=== PATIENT | female | born 1930 | race African-American/Black ===

== ENCOUNTER 2016-07-06 17:35 | Inpatient (IN) | payer MEDICARE, BC ==
[~2016-07-06] VITALS: Ht 165.1 cm; Wt 78.0 kg
[2016-07-06 01:00] VITALS: BP 99/62
[~2016-07-06 17:35] MED LIST: BACLOFEN PO; COUMADIN PO; CRESTOR PO; KEPP500 PO; LEVOTHYROXINE PO; LEVPEN SQ; LISINOPRIL PO; NOVOLOG; TRAM50TA3 PO
[2016-07-06] MEDS ORDERED: SODIUM CHLORIDE 0.9% 1,000 ML IV ONE ×2 (19:10→19:15)
[2016-07-06] MEDS ORDERED: PHYTONADIONE 10MG/ML AMP SUBCUT ONE (19:15)
[2016-07-06 19:42] LABS: CHLORIDE 99 mEq/L (98-107); INDEX HEMOLYSI 2 (1-3); INDEX ICTERIC 1 (1-4); INDEX LIPEMIC 1 (1-3)
[2016-07-06 19:45] LABS: INR 2.4; PROTHROMBIN TIME 24.4 sec
[2016-07-06 19:46] LABS: ANION GAP 30; CALCIUM 9.4 mg/dL (8.5-10.1); CARBON DIOXIDE 15 mEq/L (21-32); ETHANOL BLOOD < 10 mg/dL; UREA NITROGEN BLOOD 31 mg/dL (7-21)
[2016-07-06 19:47] LABS: AMMONIA < 10 uMol/L (<32); INDEX HEMOLYSI 1 (1-3)
[2016-07-06 19:51] LABS: ALANINE AMINOTRANSFERASE 24 IU/L (13-61); eGFR 32 mL/min (>60)
[2016-07-06 19:54] LABS: LACTIC ACID 7.9 mmol/L (0.4-2.0)
[2016-07-06] MEDS ORDERED: LEVOFLOXACIN 500MG PREMIX 100 ML IV ONE (20:15)
[2016-07-06] MEDS ORDERED: INSULIN REGULAR (HUMULIN R) 300UNITS/3ML IV ONE (20:15)
[2016-07-06] MEDS ORDERED: GENTAMICIN 120MG PREMIX 100 ML IV SCH (20:15)
[2016-07-06 20:39] LABS: BG BASE EXCESS -8.3 mmol/L (-2.0-2.0); BG CARBOXYHEMOGLOBIN 0.3 % (0.5-1.5); BG DEOXYHEMOGLOBIN 3.7 % (0.0-5.0); BG FRACTION INSPIRED OXYGEN 21; BG HCO3 ACT 14.2 mmol/L (22.0-26.0); BG METHEMOGLOBIN 0.3 % (0.0-1.5); BG OXYGEN SATURATION 96.3 % (92.0-98.5); BG OXYHEMOGLOBIN 95.7 % (94.0-97.0); BG PCO2 22.8 mmHg (35.0-45.0); BG PH 7.412 (7.350-7.450); BG PO2 82.3 mmHg (75.0-100.0); BG SAMPLE SITE RIGHT BRACHIAL; BG TOTAL HEMOGLOBIN 13.9 g/dL (12.0-18.0); BG VENT MODE ROOM AIR
[2016-07-06 21:17] LABS: GLUCOSE URINE NEGATIVE (NEGATIVE); KETONES URINE 1+ (NEGATIVE); LEUKOCYTE ESTERASE URINE 3+ (NEGATIVE); NITRITE URINE NEGATIVE (NEGATIVE); OCCULT BLOOD URINE 3+ (NEGATIVE); PROTEIN URINE 2+ (NEGATIVE); SPECIFIC GRAVITY URINE 1.023 (1.005-1.030)
[2016-07-06 21:25] LABS: CLARITY URINE CLOUDY (CLEAR); COLOR URINE YELLOW (YELLOW)
[2016-07-06 21:30] LABS: BACTERIA URINE 2+; SQUAMOUS EPITHELIAL CELL URINE 1+ /lpf (RARE/1+); WBC URINE 50-100 /hpf (0-2)
[2016-07-06 21:44] LABS: *AMPHETAMINES SCREEN URINE NEGATIVE (NEGATIVE); *BARBITURATES SCREEN URINE NEGATIVE (NEGATIVE); *BENZODIAZEPINES SCREEN URINE NEGATIVE (NEGATIVE); *COCAINE SCREEN URINE NEGATIVE (NEGATIVE); CANNABINOID URINE SCREEN NEGATIVE (NEGATIVE); ECSTASY MDMA SCREEN URINE NEGATIVE (NEGATIVE); METHADONE URINE SCREEN NEGATIVE (NEGATIVE); OPIATES URINE SCREEN PRESUMTIVE POSITIVE (NEGATIVE); PHENCYCLIDINE URINE SCREEN NEGATIVE (NEGATIVE)
[2016-07-06 22:31] LABS: BASOPHILS % 0.3 % (0.0-2.0); HEMATOCRIT. 41.5 % (36.0-48.0); LYMPHOCYTES % 10.3 % (20.0-50.0); MEAN CORPUSCULAR HEMOGLOBIN 28.1 pg (28.0-32.0); MEAN CORPUSCULAR HGB CONC 31.4 g/dL (31.0-37.0); MEAN CORPUSCULAR VOLUME 89.5 fL (81.0-99.0); MEAN PLATELET VOLUME 10.7 fl (7.4-10.4); MONOCYTES % 8.5 % (2.0-8.0); NEUTROPHILS % 80.9 % (40.0-76.0); PLATELET 195 x1000/uL (130-400); RED BLOOD CELL COUNT 4.64 mill/uL (4.2-5.4); RED CELL DISTRIBUTION WIDTH 16.1 % (11.6-14.6); WHITE BLOOD COUNT 15.1 x1000/uL (4.5-11.0)
[2016-07-06] MEDS ORDERED: DEXT 5%/0.45% NACL 1000ML 1,000 ML IV SCH (23:51)
[2016-07-07] VITALS (7 sets, daily range): BP systolic 86–100; BP diastolic 43–69
[2016-07-07] MEDS ORDERED: LEVOFLOXACIN 500MG PREMIX 100 ML IV SCH
[2016-07-07] MEDS ORDERED: ONDANSETRON HCL 4MG/2ML VIAL IV PRN
[2016-07-07] MEDS ORDERED: DIPHENHYDRAMINE 50MG/ML VIAL IV PRN
[2016-07-07] MEDS ORDERED: CLONIDINE 0.1MG TABLET PO PRN
[2016-07-07] MEDS ORDERED: DEXTROSE 50% WATER 50ML SYRINGE IV PRN (01:15)
[2016-07-07] MEDS: INSULIN LISPRO 100 UNITS/ML SUBCUT SCH ×5 (01:58→21:18)
[2016-07-07] MEDS: BLOOD SUGAR DIAGNOSTIC STRIP TEST SCH ×5 (02:00→21:12)
[2016-07-07] MEDS: PANTOPRAZOLE SODIUM 40 MG/VIAL IV SCH ×2 (02:01→12:56)
[2016-07-07] MEDS: SODIUM CHLORIDE 0.9% 1,000 ML IV SCH ×3 (02:01→21:13)
[2016-07-07] MEDS ORDERED: WARF1TAB46 PO (02:38)
[2016-07-07] MEDS ORDERED: ROSU20TA PO (06:21)
[2016-07-07] MEDS ORDERED: LEVO25TA7 PO (06:21)
[2016-07-07] MEDS ORDERED: WARF3TAB28 PO (06:21)
[2016-07-07 08:28] LABS: HEMATOCRIT. 38.1 % (36.0-48.0); HEMOGLOBIN. 12.1 g/dL (12.0-16.0); MEAN CORPUSCULAR HEMOGLOBIN 27.9 pg (28.0-32.0); MEAN CORPUSCULAR HGB CONC 31.7 g/dL (31.0-37.0); MEAN CORPUSCULAR VOLUME 88.1 fL (81.0-99.0); MEAN PLATELET VOLUME 10.6 fl (7.4-10.4); PLATELET 163 x1000/uL (130-400); RED BLOOD CELL COUNT 4.33 mill/uL (4.2-5.4); RED CELL DISTRIBUTION WIDTH 15.9 % (11.6-14.6); WHITE BLOOD COUNT 13.5 x1000/uL (4.5-11.0)
[2016-07-07 08:29] LABS: DIFFERENTIAL COMMENT 1
[2016-07-07 08:33] LABS: INR 2.1; PROTHROMBIN TIME 21.6 sec
[2016-07-07 08:50] LABS: CALCIUM 8.2 mg/dL (8.5-10.1)
[2016-07-07 08:53] LABS: THYROID STIMULATING HORMONE 2.1 uIU/mL (0.36-3.74)
[2016-07-07] MEDS ORDERED: PANTOPRAZOLE SODIUM 40 MG/VIAL IV SCH (09:00)
[2016-07-07 14:48] LABS: ANISOCYTOSIS 1+; PLATELET ESTIMATE NORMAL
[2016-07-07] MEDS ORDERED: LEVAQUIN XX SCH (16:30)
[2016-07-07] MEDS: LEVOFLOXACIN 250MG PREMIX 50 ML IV SCH (18:37)
[2016-07-07] MEDS ORDERED: GENTAMICIN 100MG PREMIX 50 ML IV SCH (21:00)
[2016-07-07] MEDS ORDERED: GENTAMICIN 80MG PREMIX 100 ML IV SCH (23:00)
[2016-07-08] VITALS: BP 98/57
[2016-07-08] MEDS: PANTOPRAZOLE SODIUM 40 MG/VIAL IV SCH ×2 (02:11→12:43)
[2016-07-08 04:00] VITALS: BP 104/73
[2016-07-08] MEDS: ACETAMINOPHEN 325MG TABLET PO PRN (06:06)
[2016-07-08 06:10] LABS: INR 1.2; PROTHROMBIN TIME 12.7 sec
[2016-07-08] MEDS: SODIUM CHLORIDE 0.9% 1,000 ML IV SCH ×2 (06:12→08:24)
[2016-07-08] MEDS: BLOOD SUGAR DIAGNOSTIC STRIP TEST SCH ×4 (06:12→21:00)
[2016-07-08 06:47] LABS: BASOPHILS % 0.1 % (0.0-2.0); HEMATOCRIT. 38.4 % (36.0-48.0); HEMOGLOBIN. 12.4 g/dL (12.0-16.0); LYMPHOCYTES % 8.9 % (20.0-50.0); MEAN CORPUSCULAR HEMOGLOBIN 28.4 pg (28.0-32.0); MEAN CORPUSCULAR HGB CONC 32.2 g/dL (31.0-37.0); MEAN CORPUSCULAR VOLUME 88.1 fL (81.0-99.0); MEAN PLATELET VOLUME 10.6 fl (7.4-10.4); MONOCYTES % 10.4 % (2.0-8.0); NEUTROPHILS % 80.6 % (40.0-76.0); PLATELET 136 x1000/uL (130-400); RED BLOOD CELL COUNT 4.36 mill/uL (4.2-5.4); WHITE BLOOD COUNT 9.9 x1000/uL (4.5-11.0)
[2016-07-08 07:44] LABS: CALCIUM 8.2 mg/dL (8.5-10.1); MAGNESIUM 1.9 mg/dL (1.8-2.4); PHOSPHORUS 1.7 mg/dL (2.5-4.9)
[2016-07-08 08:00] VITALS: BP 92/63
[2016-07-08] MEDS: LEVOTHYROXINE SODIUM 88MCG TABLET PO SCH (08:23)
[2016-07-08] MEDS: INSULIN LISPRO 100 UNITS/ML SUBCUT SCH ×4 (08:29→22:27)
[2016-07-08] MEDS ORDERED: POTASSIUM CHLORIDE 20 MEQ/PACKET PO NR (10:15)
[2016-07-08 12:00] VITALS: BP 95/63
[2016-07-08] MEDS ORDERED: POTASSIUM PHOS,M-BASIC-D-BASIC 20 MMOL in DEXT 5% WATER 243.3333 ML IV NR (12:00)
[2016-07-08] MEDS: LEVOFLOXACIN 250MG PREMIX 50 ML IV SCH (17:08)
[2016-07-08] MEDS ORDERED: WARFARIN SODIUM 5MG TABLET PO NR (18:00)
[2016-07-08] MEDS ORDERED: WARFARIN SODIUM 3MG TABLET PO NR (18:00)
[2016-07-08] MEDS: IPRATROPIUM/ALBUTEROL 0.5-3(2.5)MG/3ML NEB HHN SCH (20:18)
[2016-07-08 22:58] VITALS: BP 88/56
[2016-07-08] MEDS: INSULIN DETEMIR UD 100 UNITS/ML SYR SUBCUT SCH (23:15)
[2016-07-08] MEDS ORDERED: GUAIFENESIN 200MG/10ML SUGAR FREE UDC PO PRN (23:30)
[2016-07-09] VITALS: BP 98/65
[2016-07-09] MEDS: ACETAMINOPHEN 325MG TABLET PO PRN ×2 (00:27→13:26)
[2016-07-09] MEDS: IPRATROPIUM/ALBUTEROL 0.5-3(2.5)MG/3ML NEB HHN SCH ×4 (01:56→20:45)
[2016-07-09] MEDS: PANTOPRAZOLE SODIUM 40 MG/VIAL IV SCH ×2 (03:07→13:04)
[2016-07-09 04:00] VITALS: BP 140/98
[2016-07-09] MEDS: BLOOD SUGAR DIAGNOSTIC STRIP TEST SCH ×4 (06:48→20:53)
[2016-07-09 07:33] LABS: BASOPHILS % 0.1 % (0.0-2.0); HEMATOCRIT. 36.4 % (36.0-48.0); HEMOGLOBIN. 11.8 g/dL (12.0-16.0); LYMPHOCYTES % 9.2 % (20.0-50.0); MEAN CORPUSCULAR HEMOGLOBIN 28.7 pg (28.0-32.0); MEAN CORPUSCULAR HGB CONC 32.5 g/dL (31.0-37.0); MEAN CORPUSCULAR VOLUME 88.4 fL (81.0-99.0); MEAN PLATELET VOLUME 10.4 fl (7.4-10.4); MONOCYTES % 7.8 % (2.0-8.0); NEUTROPHILS % 82.9 % (40.0-76.0); PLATELET 132 x1000/uL (130-400); RED BLOOD CELL COUNT 4.12 mill/uL (4.2-5.4); RED CELL DISTRIBUTION WIDTH 16.3 % (11.6-14.6); WHITE BLOOD COUNT 9.6 x1000/uL (4.5-11.0)
[2016-07-09 07:34] LABS: INR 1.1; PROTHROMBIN TIME 11.5 sec
[2016-07-09 08:00] VITALS: BP 92/57
[2016-07-09 08:13] LABS: CALCIUM 8.4 mg/dL (8.5-10.1); PHOSPHORUS 2.5 mg/dL (2.5-4.9)
[2016-07-09] MEDS: LEVOTHYROXINE SODIUM 88MCG TABLET PO SCH (08:16)
[2016-07-09] MEDS: INSULIN LISPRO 100 UNITS/ML SUBCUT SCH ×4 (08:16→20:54)
[2016-07-09] MEDS ORDERED: POTASSIUM CHLORIDE INJ 40 MEQ in DEXT 5% WATER 250 ML IV SCH (10:00)
[2016-07-09] MEDS: INSULIN DETEMIR UD 100 UNITS/ML SYR SUBCUT SCH ×2 (10:14→21:01)
[2016-07-09 12:00] VITALS: BP 96/65
[2016-07-09 16:00] VITALS: BP 108/69
[2016-07-09] MEDS ORDERED: WARFARIN SODIUM 4MG TABLET PO SCH (18:00)
[2016-07-09] MEDS ORDERED: LEVOFLOXACIN 250MG PREMIX 50 ML IV NR (18:00)
[2016-07-09 20:00] VITALS: BP 95/70
[2016-07-09] MEDS: HYDROCODONE/ACETAMINOPHEN 5/325MG TABLET PO PRN (20:47)
[2016-07-10] VITALS: BP 97/60
[2016-07-10] MEDS: PANTOPRAZOLE SODIUM 40 MG/VIAL IV SCH ×2 (01:15→13:45)
[2016-07-10] MEDS: IPRATROPIUM/ALBUTEROL 0.5-3(2.5)MG/3ML NEB HHN SCH ×3 (02:15→13:28)
[2016-07-10 04:00] VITALS: BP 101/52
[2016-07-10 05:45] LABS: INR 1.1; PROTHROMBIN TIME 11.5 sec
[2016-07-10] MEDS: HYDROCODONE/ACETAMINOPHEN 5/325MG TABLET PO PRN (06:05)
[2016-07-10] MEDS: BLOOD SUGAR DIAGNOSTIC STRIP TEST SCH ×2 (06:20→13:03)
[2016-07-10] MEDS: INSULIN LISPRO 100 UNITS/ML SUBCUT SCH ×2 (08:27→13:04)
[2016-07-10] MEDS: LEVOTHYROXINE SODIUM 88MCG TABLET PO SCH (08:27)
[2016-07-10] MEDS: INSULIN DETEMIR UD 100 UNITS/ML SYR SUBCUT SCH (10:17)
[2016-07-10 12:00] VITALS: BP 112/69
[2016-07-10 15:10] VITALS: BP 112/69
[2016-07-10 16:00] VITALS: BP 98/74
== END 2016-07-10 17:45 | disposition home health service (06) | DRG 871 ==
LOC: ER 17:36 → 7WST 20:46
PROVIDERS: ADMIT Internal Medicine; ATTEND Internal Medicine
DX: A41.9 Sepsis, unspecified organism (principal); G93.41 Metabolic encephalopathy; N39.0 Urinary tract infection, site not specified; E87.2 Acidosis; I69.354 Hemiplegia and hemiparesis following cerebral infarction affecting left non-dominant side; E03.9 Hypothyroidism, unspecified; E11.9 Type 2 diabetes mellitus without complications; E78.00 Pure hypercholesterolemia, unspecified; E86.0 Dehydration; I48.2 Chronic atrial fibrillation; I11.9 Hypertensive heart disease without heart failure; R74.0 Nonspecific elevation of levels of transaminase and lactic acid dehydrogenase [LDH]; B96.1 Klebsiella pneumoniae [K. pneumoniae] as the cause of diseases classified elsewhere; N28.9 Disorder of kidney and ureter, unspecified; Z66 Do not resuscitate; Z90.710 Acquired absence of both cervix and uterus; Z88.0 Allergy status to penicillin; Z91.041 Radiographic dye allergy status; Z79.4 Long term (current) use of insulin; Z79.01 Long term (current) use of anticoagulants; Z79.899 Other long term (current) drug therapy; Z87.891 Personal history of nicotine dependence; Z82.3 Family history of stroke; Z83.3 Family history of diabetes mellitus
CPT/HCPCS: 36415; 36600; 43753; 71010; 80048; 80053; 80305; 81001; 82140; 82375; 82805; 82962; 83036; 83605; 83735; 84100; 84443; 85025; 85610; 86850; 86900; 87040; 87077; 87086; 87186; 87493; 93970; 94640; 94664; 96361; 96365; 96367; 96372; 96375; 99291; A6261; C1893; C9113; G0482; J1580; J1815; J1956; J2405; J3430; J3480; J3490; J7030; J7040; J7060; J7620